=== PATIENT | female | born 1985 | race Two or more races ===

== ENCOUNTER 2019-12-09 02:13 | Emergency (ER) | payer OTHER ==
[~2019-12-09] VITALS: Ht 180.3 cm; Wt 99.8 kg
[2019-12-09] MEDS ORDERED: ZESTRIL10 M1 (02:22)
[2019-12-09] MEDS ORDERED: PROAIR HFA8.5 GM (02:22)
[2019-12-09] MEDS ORDERED: AMBIEN5 MG (02:23)
[2019-12-09] MEDS ORDERED: TRAMADOL HCL50 MG (02:23)
[2019-12-09] MEDS ORDERED: XOPENEX0.63 MG/3 (02:23)
== END 2019-12-09 03:49 | disposition home or self-care (01) ==
LOC: ER 02:13
DX: J45.998 Other asthma (principal)